=== PATIENT | male | born 2000 | race Caucasian/White ===

== ENCOUNTER 2025-08-16 11:59 | Outpatient (CLI) | payer OTHER ==
[~2025-08-16 11:59] MED LIST: LEVSIN0.125 MG PO
== END 2025-08-16 12:07 | disposition home or self-care (01) ==
LOC: RAD 11:59
DX: M79.671 Pain in right foot (principal); M25.571 Pain in right ankle and joints of right foot

== ENCOUNTER 2025-09-06 11:41 | Outpatient (CLI) | payer OTHER | END 2025-09-06 11:44 | disposition home or self-care (01) | LOC: RAD 11:41 | DX: M79.671 Pain in right foot (principal) ==